=== PATIENT | female | born 1965 | race African-American/Black ===

== ENCOUNTER 2021-06-05 13:46 | Emergency (ER) | payer OTHER ==
[~2021-06-05] VITALS: Ht 167.6 cm; Wt 115.3 kg
--- NOTE | 2021-06-05 13:50 | PHYS DOC ---
Adult General [facility] HPI Patient is a 56 year old female who presents with chest pain. Patient has been having sternal chest discomfort over the last 3 days. Pain is over the sternal and nonradiating. She reports that it is been constant. No aggravating or alleviating factors other than it is worse when she coughs. Also reports pain is worse when she breathes deeply. She has not been ill lately. No persistent cough or productive cough. No fever. She has known history of asthma and was traveling out of town this weekend and did have to use her inhaler a couple of times. No personal or family history of coronary artery disease. She takes no other medications daily. No history of high blood pressure hyperlipidemia. Does not use tobacco. Review of Systems Review of Systems Constitutional: Denies fever or chills Eyes: Denies change in visual acuity HENT: Denies nasal congestion or sore throat Respiratory: hx of asthma but no significant exacerbatioin Cardiovascular: as documented in HPI GI: Denies abdominal pain : Denies dysuria or hematuria Musculoskeletal: Denies back pain or joint pain Integument: Denies rash or skin lesions Neurologic: Denies Endocrine: Denies All other systems were reviewed and found to be within normal limits, except as documented in this note. Physical Exam Physical Exam Constitutional: Well developed, well nourished, no acute distress, non-toxic appearance HENT: Normocephalic, atraumatic, bilateral external ears normal, oropharynx moist Eyes: PERRLA, EOMI, conjunctiva normal, no discharge Neck: Normal range of motion Cardiovascular:Heart rate regular rhythm, no murmur Lungs & Thorax: Bilateral breath sounds clear to auscultation Skin: Warm, dry, no erythema, no rash. Back: No tenderness Extremities: No tenderness, no cyanosis, no clubbing, ROM intact, no edema Neurologic: Alert and oriented X 3 Psychologic: Affect normal EKG EKG 14:05: Interpreted by ER physician. No STEMI. Normal sinus rhythm. Radiology/Procedures Radiology/Procedures [] Heart Score C/O Chest Pain: Yes HEART Score for Chest Pain: HEART Score for Chest Pain Response (Comments) Value History Slighlty/Non-Suspicious 0 ECG Normal 0 Age >45 - < 65 1 Risk Factors No Risk Factors 0 Troponin < Normal Limit 0 Total 1 Risk Factors: Risk Factors: DM, Current or recent (<one month) smoker, HTN, HLP, family history of CAD, obesity. Risk Scores: Risk Factors: DM, Current or recent (<one month) smoker, HTN, HLP, family history of CAD, obesity. Course & Med Decision Making Course & Med Decision Making Pertinent Labs and Imaging studies reviewed. (See chart for details) Seen and examined on arrival to her room. EKG is normal. Will give aspirin and her usual cardiac work-up. Pain for three days. 15:15: All results are reviewed and discussed with the patient. All her questions were answered. She is noted to have very minimally elevated D-dimer at 1.52. The upper limit of normal is 0.50. Do not feel this is adequate to pursue pulmonary embolus work-up. Her oxygen saturation is normal. Her heart rate is normal. She has no risk factors. Given the chronicity of her complaints, and with a normal high-sensitivity troponin, she is stable for discharge from the ER. I recommend she follow-up with primary care doctor or come back to the ER for severely worsening or persistent symptoms. Continue use of her albuterol inhaler as needed. Tylenol or ibuprofen for discomfort. Dragon Disclaimer Dragon Disclaimer This electronic medical record was generated, in whole or in part, using a voice recognition dictation system. Departure Departure: Impression: Primary Impression: Other chest pain Disposition: HOME / SELF CARE / HOMELESS Condition: GOOD Patient Instructions: Chest Pain (Nonspecific) MARICARMEN GUZMAN DO Jun 05, 2021 13:50
[2021-06-05] MEDS ORDERED: ASPIRIN CHEWABLE 81 MG TABLET. PO ONE (14:00)
--- NOTE | 2021-06-05 14:12 | RAD ---
EXAM: Chest, single view. HISTORY: Dyspnea. COMPARISON: None. FINDINGS: A frontal view of the chest is obtained. There is no infiltrate, pleural effusion or pneumo thorax. There is masslike density at the right cardiophrenic angle due to a possible diaphragmatic he rnia. This is not typical in appearance for a fat pad. The heart is normal in size. IMPRESSION: Suspected herniation of the right hemidiaphragm at the cardiophrenic angle. A lateral rad iograph or CT can be performed to exclude an alternative etiology. Electronically signed by: Yolanda Medrano MD (06/05/2021 2:10 PM) [id number]
[2021-06-05 14:41] LABS: BASO % 1 % (0-3); EOS # 0.2 x10^3/uL (0.0-0.7); EOS % 3 % (0-3); HEMATOCRIT 36.9 % (36.0-47.0); HEMOGLOBIN 11.8 g/dL (12.0-15.5); LYMPH # 1.4 x10^3/uL (1.0-4.8); LYMPH % 25 % (24-48); MEAN CORPUSCULAR HEMOGLOBIN 26 pg (25-35); MEAN CORPUSCULAR HGB CONC 32 g/dL (31-37); MEAN CORPUSCULAR VOLUME 80 fL (79-100); MONO # 0.5 x10^3/uL (0.0-1.1); MONO % 8 % (0-9); NEUT # 3.7 x10^3uL (1.8-7.7); NEUT % 64 % (31-73); PLATELET COUNT 167 x10^3/uL (140-400); RED CELL DISTRIBUTION WIDTH 14.8 % (11.5-14.5); WHITE BLOOD COUNT 5.7 x10^3/uL (4.0-11.0)
[2021-06-05 14:44] LABS: CALCIUM 8.9 mg/dL (8.5-10.1); CREATININE 0.9 mg/dL (0.6-1.0); GFR 78.7; POTASSIUM 4.1 mmol/L (3.5-5.1)
[2021-06-05] MEDS ORDERED: IV NORMAL SALINE 1,000ML 1,000 ML IV ONE (15:00)
[2021-06-05 15:24] VITALS: BP 115/55
--- NOTE | 2021-06-06 21:57 | EKG ---
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
== END 2021-06-05 15:30 | disposition home or self-care (01) ==
LOC: ER 13:46
DX: R07.89 Other chest pain (principal); R05.9 Cough, unspecified; J45.909 Unspecified asthma, uncomplicated
CPT/HCPCS: 36415; 71045; 80048; 84484; 85025; 85379; 93005; 99285

== ENCOUNTER → 2021-06-12 | Outpatient (CLI) | payer OTHER ==
[2021-06-05 15:24] VITALS: BP 115/55
--- NOTE | 2021-06-12 16:36 | RAD ---
Right lower extremity venous duplex study 06/12/2021 4:33 PM Clinical History: Right ankle swelling Technique: Using a combination of real time ultrasound imaging and color-flow and pulse Doppler imagi ng techniques, including spectral analysis, graded compression and augmentation, duplex evaluation of the deep venous system of the right lower extremity was performed. Multiple images were obtained. Findings: There is no sonographic evidence of deep venous thrombosis involving the visualized deep ve nous structures of the right lower extremity Impression: No evidence of deep venous thrombosis involving the right lower extremity Electronically signed by: Xavi Terrell MD (06/12/2021 4:33 PM) [id number]
== END ==
LOC: RAD 15:41
PROVIDERS: ATTEND Family Medicine
DX: M25.471 Effusion, right ankle (principal); R79.89 Other specified abnormal findings of blood chemistry
CPT/HCPCS: 93971